=== PATIENT | female | born 1985 | race Caucasian/White ===

== ENCOUNTER → 2016-02-29 | Outpatient (CLI) | payer BC ==
[~2016-02-29] MED LIST: FRRS300 PO; MTR600X PO; PRENTAB26 PO
[2016-02-29 11:29] LABS: GTGD 50 Grams
[2016-02-29 12:13] LABS: URINE APPEARANCE CLEAR (CLEAR); URINE BILIRUBIN NEG (NEG); URINE COLOR YELLOW; URINE EPITHELIAL CELL AUTO >30 /lpf (0-5); URINE NITRITE NEG (NEG); URINE PH 7.5 (4.5-7.5); URINE SPECIFIC GRAVITY 1.003 (1.000-1.030); UROBILINOGEN NEG (NEG)
[2016-02-29 12:22] LABS: MANUAL MICROSCOPIC REQUIRED? NO; REVIEW REQ? NO
== END | disposition home or self-care (01) ==
LOC: C.LAB1850 09:27
PROVIDERS: ATTEND Obstetrics & Gynecology
DX: O09.292 Supervision of pregnancy with other poor reproductive or obstetric history, second trimester (principal)

== ENCOUNTER → 2016-04-25 | Outpatient (CLI) | payer BC | END | disposition home or self-care (01) | LOC: C.LABSPEC 16:33 | PROVIDERS: ATTEND Obstetrics & Gynecology | DX: O09.293 Supervision of pregnancy with other poor reproductive or obstetric history, third trimester (principal); Z3A.00 Weeks of gestation of pregnancy not specified ==

== ENCOUNTER 2016-05-20 03:09 | Inpatient (IN) | payer BC ==
[~2016-05-20] VITALS: Ht 172.7 cm; Wt 102.5 kg
[~2016-05-20 03:09] MED LIST changes: -FRRS300 PO; -MTR600X PO
[2016-05-25 07:53] VITALS: Ht 172.7 cm; Wt 102.5 kg
[2016-05-25] MEDS ORDERED: LACTATED RINGER'S 1000ML 1,000 ML IV SCH (08:00)
[2016-05-25] MEDS ORDERED: LACTATED RINGER'S 1000ML 500 ML IV PRN ×2 (08:01→17:30)
[2016-05-25] MEDS ORDERED: OXYTOCIN 30 UNITS/500ML NSS IV PRN (08:15)
[2016-05-25] MEDS ORDERED: PENICILLIN G POTASSIUM IV 6 MU in DEXTROSE 5% 250ML 250 ML IV ONE (08:15)
[2016-05-25 08:37] LABS: HEMATOCRIT 38.2 % (37-47); MEAN CELL VOLUME 92.7 fL (80-100); MEAN CORPUSCULAR HEMOGLOBIN 31.6 pg (25-34); MEAN PLATELET VOLUME 10.3 fL (7.4-10.4); PLATELET COUNT 187 K/uL (130-400); RED BLOOD COUNT 4.12 M/uL (4.2-5.4); WHITE BLOOD COUNT 10.55 K/uL (4.8-10.8)
[2016-05-25] MEDS: PENICILLIN G POTASSIUM IV 3 MU in DEXTROSE 5% 100ML 100 ML IV PRN ×3 (12:02→20:31)
[2016-05-25] MEDS ORDERED: EpHEDrine SULFATE INJ 50 MG/ML AMP ONE (16:52)
[2016-05-25] MEDS ORDERED: FENTANYL CITRATE INJ 50 MCG/1 ML 2 ML VIAL ONE (16:52)
[2016-05-25] MEDS ORDERED: BUPIVACAINE 0.25% 30 ML VIAL ONE (16:52)
[2016-05-25] MEDS ORDERED: FENTANYL 2MCG/ML ROPIV 1.25MG/ML 100ML BAG EPI ONE (16:53)
[2016-05-25] MEDS ORDERED: NALBUPHINE HCL INJ 10 MG/ML AMP IV PRN (17:30)
[2016-05-25] MEDS ORDERED: NALOXONE HCL INJ 0.4 MG/1 ML VIAL/CARP IV PRN (17:30)
[2016-05-25] MEDS ORDERED: DiphenhydrAMINE HCL 50 MG/ML VIAL IV PRN (17:30)
[2016-05-25] MEDS ORDERED: ONDANSETRON INJ 2 MG/ML 2 ML VIAL IV PRN (17:30)
[2016-05-25] MEDS ORDERED: NALOXONE HCL INJ 1 MG in SODIUM CHLORIDE 0.9% 1000ML 1,000 ML IV PRN (17:30)
[2016-05-25] MEDS ORDERED: FENTANYL 2MCG/ML ROPIV 1.25MG/ML 100ML BAG EPI PRN (17:30)
[2016-05-25] MEDS ORDERED: EpHEDrine SULFATE INJ 50 MG/ML AMP IV PRN (17:30)
[2016-05-25] MEDS: LACTATED RINGER'S 1000ML 1,000 ML IV SCH (19:30)
[2016-05-26] MEDS ORDERED: ACETAMINOPHEN 325 MG TAB PO PRN (01:00)
[2016-05-26] MEDS ORDERED: BENZOCAINE 20% AER SPR 82.5 GM CAN EXT PRN (01:00)
[2016-05-26] MEDS ORDERED: SUPERCREAM 0.870 % 15GM JAR EXT PRN (01:00)
[2016-05-26] MEDS ORDERED: DIPHTHERIA/TETANUS/PERTUSSIS 0.5 ML SYR/VIAL IM. ONE (01:00)
[2016-05-26] MEDS ORDERED: LANOLIN OINT EXT PRN ×2 (01:00)
[2016-05-26] MEDS ORDERED: MISOPROSTOL 200 MCG TAB PR SCH (01:00)
[2016-05-26] MEDS ORDERED: IBUPROFEN 600 MG TAB PO PRN (01:00)
[2016-05-26] MEDS ORDERED: HYDROCORTISONE ACETATE 25 MG SUPP PR PRN (01:00)
[2016-05-26] MEDS ORDERED: OXYTOCIN 30 UNITS/500ML NSS IV PRN (01:00)
[2016-05-26] MEDS: OXYTOCIN INJ 20 UNITS in LACTATED RINGER'S 1000ML 1,000 ML IV SCH ×2 (01:13→12:42)
[2016-05-26] MEDS ORDERED: METHYLERGONOVINE MALEATE 0.2 MG/ML AMP ONE ×2 (02:16→03:51)
[2016-05-26] MEDS ORDERED: CEFAZOLIN IV 2,000 MG in DEXTROSE 5% 50ML 50 ML IV ONE (02:36)
[2016-05-26 02:41] LABS: HEMATOCRIT 31.8 % (37-47)
--- NOTE | 2016-05-26 02:52 | DELIVERY SUMMARY ---
DATE OF OPERATION: 05/26/2016 The patient dilated to complete and pushed to deliver a viable male . Apgars 8 and 9 via over small second degree perineal laceration. Mouth and nose bulb suctioned at the perineum. Nuchal cord x1 noted and not easily reduced, so delivered through. Shoulders and body delivered with ease. Infant vigorous and crying at . Cord blood obtained. Placenta delivered spontaneously and intact a 3-vessel cord. Hemostasis inadequate with dilute Pitocin and uterine massage. Therefore, 800 mcg of per rectum Cytotec administered. The bladder was drained for clear yellow urine of approximately 250 mL. Cervix and sulci were intact. Hemostasis improved. Lacerations repaired in the usual fashion with 3-0 Vicryl. EBL 500 mL. Mother and baby stable in recovery. I attest to the content of the Intraoperative Record and any orders documented therein. Any exceptions are noted below. MTDD
[2016-05-26] MEDS ORDERED: BUTORPHANOL TARTRATE 1 MG/ML VIAL ONE (03:03)
--- NOTE | 2016-05-26 03:08 | HISTORY & PHYSICAL EXAMINATION ---
DATE OF ADMISSION: 05/26/2016 BEDSIDE PROCEDURE: Called to the patient's bedside due to heavy vaginal bleeding. The patient was having her routine fundal assessment after having eaten and having breastfed the baby and a large amount of blood and clot was visible on the under buttocks pads, which appeared to total at least 600 mL. The patient was repositioned on the bed for evaluation. Uterus completely uncontracted despite use of dilute Pitocin and 800 mcg of Cytotec previously given. The operators hand was placed into the uterus several times with clearance of clots, however no retained tissue noted. Bladder drained for approximately 300 mL of urine under sterile conditions. Blood pressure at that time 110s/60s with a pulse of 88 and therefore 0.2 mg of Methergine administered IM. The dilute Pitocin was increased to a rate of 999 mL per minute. A second IV site was obtained. A Bakri balloon was readied and placed within the uterine cavity. The balloon was inflated to approximately 385 mL. The patient was tolerating all this quite well. The bleeding seemed to be diminishing and there is no egress of blood from the Bakri balloon catheter. The uterine fundus was approximately 1 down from the umbilicus. A speculum was used previously to reinspect the vaginal tissues for any lacerations and no bleeding was noted from the cervix, sulci or laceration and therefore the hemorrhage was purely uterine tone related. The patient was counseled about all this. An H\H was being drawn as a baseline and the second one will be drawn later this morning. Will continue to use dilute Pitocin and watch for further bleeding. I suspect the additional bleeding after the 500 mL lost at the totals 800 mL with a total estimated blood loss of 1300 mL. History and Physical: cc: pph hpi: 31yo now with PPH about 2hrs from of LGA baby after induction for postdates and h/o prior LGA baby. Pt underwent induction with pitocin early am on 05/25/16 and delivery of was about 1am on 05/26/16. At the time of , borderline excess bleeding was managed as noted above. I was called to see patient as noted above and now on my reevaluation I continue to see a trickle of blood vaginally and balloon potentially is not situated correctly. I do feel fundus is now 1 above the umbilicus and given these findings and fact that patient epidural anesthesia is wearing off and I want to do a more thorough EUA, I recommend evaluation under anesthesia and patient agrees. She was given hemabate as well IM in attempt to see if bleeding was better controlled. pnc c/b 1. GBS pos, postdates, and prior LGA fetus pnl: rh pos, ri, gbs pos obh: 2013, , lga fetus, op note on that delivery shows pph then controlled with dilute pit and cytotec per rectum 2016 9wk D&E, missed gynh: nl paps, no stds pmh: anxiety psh: D&E, wisdom teeth allg: nkda meds: PNV sh: no tob/etoh/drugs fh: no rosangela anom or mr pe: bp 110/60s, p 88, abd with firm fundus but 1 above umbilicus and to the right. perineal exam with on and off bright red trickle and balloon palpably more in vagina than in cervix a/ acute pph p/ discussed with couple need to examine more thoroughly in OR. I feel balloon may need to be re-situated, need to redo inspections of tissues, reexplore the uterus and possible curettage. Also reviewed more drastic measures like exploratory laparotomy, stiches in her uterus or vessels and possible hysterectomy. consent reviewed and signed. T&C x 2 initiated. Coags drawn. Hgb was recently 11 and plts 177. Pt readied for OR and anesthesia and OR team notified. JENNIFER
[2016-05-26] MEDS ORDERED: CARBOPROST TROMETHAMINE 250 MCG/ML AMP ONE ×2 (03:11→03:51)
[2016-05-26 03:20] LABS: MEAN CORPUSCULAR HEMOGLOBIN 31.7 pg (25-34); MEAN CORPUSCULAR HGB CONC 34.9 g/dl (32-36); MEAN PLATELET VOLUME 9.8 fL (7.4-10.4); PLATELET COUNT 177 K/uL (130-400); WHITE BLOOD COUNT 19.35 K/uL (4.8-10.8)
[2016-05-26] MEDS ORDERED: FENTANYL CITRATE INJ 50 MCG/1 ML 2 ML VIAL ONE ×2 (03:23)
[2016-05-26] MEDS ORDERED: MIDAZOLAM HCL 1 MG/ML 2ML VIAL ONE (03:23)
[2016-05-26] MEDS ORDERED: ALBUMIN HUMAN 5% 12.5 GM/250 ML VIAL IV ONE (03:28)
[2016-05-26 03:38] LABS: MEAN CELL VOLUME 90.9 fL (80-100)
[2016-05-26 03:39] LABS: INR 0.9 (0.9-1.1); PARTIAL THROMBOPLASTIN RATIO 1.1
[2016-05-26] MEDS ORDERED: MISOPROSTOL 200 MCG TAB ONE (03:50)
[2016-05-26] MEDS ORDERED: PROPOFOL IV EMULSION 10 MG/ML 20 ML VIAL IV ONE (04:34)
[2016-05-26] MEDS ORDERED: SUCCINYLCHOLINE CHLORIDE 20 MG/ML 10 ML VIAL IV ONE (04:34)
[2016-05-26] MEDS ORDERED: ROCURONIUM BROMIDE 10 MG/ML 5 ML VIAL ONE (04:34)
[2016-05-26] MEDS ORDERED: ONDANSETRON INJ 2 MG/ML 2 ML VIAL ONE (04:34)
[2016-05-26] MEDS ORDERED: GLYCOPYRROLATE INJ 0.2 MG/ML VIAL ONE (04:35)
[2016-05-26] MEDS ORDERED: DEXAMETHASONE SOD INJ 4 MG/ML VIAL ONE (04:35)
[2016-05-26] MEDS ORDERED: OXYTOCIN INJ 10 UNITS/ML VIAL ONE (04:39)
[2016-05-26] MEDS ORDERED: ATROPINE SULFATE 0.1 MG/ML 5ML SYR IV PRN (05:15)
[2016-05-26] MEDS ORDERED: ONDANSETRON INJ 2 MG/ML 2 ML VIAL IV PRN (05:15)
[2016-05-26] MEDS ORDERED: FENTANYL CITRATE INJ 50 MCG/1 ML 2 ML VIAL IV PRN (05:15)
[2016-05-26] MEDS ORDERED: EpHEDrine SULFATE INJ 50 MG/ML AMP IV PRN (05:15)
[2016-05-26] MEDS ORDERED: HYDROmorphone INJ 1 MG/ML SYR IV PRN (05:15)
--- NOTE | 2016-05-26 05:28 | Anesthesia Procedure Note ---
Anesthesia Epidural Removal Nt Date & Time May 26, 2016 at 05:27 Vital Signs Pain Intensity: 9.0 Vital Signs Past 12 Hours Date Time Temp Pulse Resp B/P Pulse Ox O2 Delivery O2 Flow Rate FiO2 05/26/16 05:20 83 16 129/83 97 Room Air 05/26/16 05:10 84 16 124/74 97 Nasal Cannula 2 05/26/16 05:00 87 16 125/81 97 Nasal Cannula 2 05/26/16 04:59 36.6 88 16 117/75 96 Mask 10 Notes Mental Status: alert / awake / arousable, participated in evaluation Nausea / Vomiting: adequately controlled Pain: improving with treatment Airway Patency, RR, SpO2: stable & adequate BP & HR: stable & adequate Hydration State: stable & adequate Neuraxial Anesthesia: was administered Anesthetic Complications: no major complications apparent, pt satisfied with anesthetic care Epidural: removed without complications, with tip intact
[2016-05-26 05:31] VITALS: O2SAT 94
[2016-05-26] MEDS ORDERED: MISOPROSTOL 200 MCG TAB PR STA (05:32)
--- NOTE | 2016-05-26 05:32 | Anesthesiology Progress Note ---
Anesthesia Post Op Note Date & Time May 26, 2016 at 05:27 Vital Signs Pain Intensity: 4 Vital Signs Past 12 Hours Date Time Temp Pulse Resp B/P Pulse Ox O2 Delivery O2 Flow Rate FiO2 05/26/16 05:20 83 16 129/83 97 Room Air 05/26/16 05:10 84 16 124/74 97 Nasal Cannula 2 05/26/16 05:00 87 16 125/81 97 Nasal Cannula 2 05/26/16 04:59 36.6 88 16 117/75 96 Mask 10 Notes Mental Status: alert / awake / arousable, participated in evaluation Pt Amnestic to Procedure: Yes Nausea / Vomiting: adequately controlled Pain: adequately controlled Airway Patency, RR, SpO2: stable & adequate BP & HR: stable & adequate Hydration State: stable & adequate Anesthetic Complications: no major complications apparent Patient c/o sore throat in recovery room. Apart from being intubated (done via glidescope in atraumatic fashion on first attempt), she had an OG tube placed post-induction and was removed prior to her being extubated. I suspect this is causing her sore throat and it was explained to her that this would likely subside in a day or two. When patient is awake enough small amounts of ice chips will help make her throat feel better. OG tube was placed as patient was a full stomach and required an emergent procedure when a rapid sequence induction was performed for GETA. I did suction a significant volume of stomach contents from the OG after placement so felt it was necessary for this to be inserted in the first place. Otherwise, patient is resting comfortably with stable vital signs. Per the request from her attending SERVICE AND REPAIR SUPERVISOR Dr. Reid, I ordered STAT PT/INR, PTT and fibrinogen given that patient had hemorrhage. She did not require any blood replacement in the operating room and her vital signs were very stable (normotensive, HR in 80's). Patient should be able to be transferred back to labor and delivery once criteria for PACU discharge is met.
[2016-05-26 05:38] LABS: HEMATOCRIT 29.8 % (37-47); MEAN CELL VOLUME 90.3 fL (80-100); MEAN CORPUSCULAR HEMOGLOBIN 31.5 pg (25-34); MEAN PLATELET VOLUME 9.7 fL (7.4-10.4); PLATELET COUNT 169 K/uL (130-400); WHITE BLOOD COUNT 19.92 K/uL (4.8-10.8)
[2016-05-26 05:45] LABS: MEAN CORPUSCULAR HGB CONC 34.9 g/dl (32-36)
[2016-05-26] MEDS ORDERED: CARBOPROST TROMETHAMINE 250 MCG/ML AMP IM STA (05:52)
[2016-05-26 05:57] LABS: BASO % 0.1 %; BASO ABS # 0.02 K/uL (0-0.2); COMPLETE YES; EOS % 0.1 %; IG% 0.4 %; LYMPH % 4.7 %; LYMPH ABS # 0.93 K/uL (1.2-3.4); MONO % 3.5 %; NEUT % 91.2 %
[2016-05-26] MEDS ORDERED: METHYLERGONOVINE MALEATE 0.2 MG/ML AMP IM STA (06:02)
[2016-05-26 06:10] LABS: INR 0.9 (0.9-1.1); PARTIAL THROMBOPLASTIN RATIO 1.2; PROTHROMBIN TIME (PATIENT) 10.1 SECONDS (9.0-12.0)
--- NOTE | 2016-05-26 07:02 | OPERATIVE REPORT ---
DATE OF OPERATION: 05/26/2016 PREOPERATIVE DIAGNOSES: 1. Acute hemorrhage. 2. Status post normal spontaneous vaginal delivery. POSTOPERATIVE DIAGNOSES: Same. PROCEDURE: 1. Exam under anesthesia. 2. Exploration of the uterus. 3. Placement of the Bakri balloon. 4. Re-repair of second-degree perineal laceration. 5. Administration of uterotonic agents. SURGEON: Dr. Pam Reid. GAS STATION MANAGER: Dr. Citlalli Orellana. IV FLUIDS: One liter. ESTIMATED BLOOD LOSS: 300 mL. URINE OUTPUT: 250 mL. ANESTHESIA: General. INDICATIONS: A 31-year-old 3, para 1-0-2-1, approximately 3 hours , with continued acute hemorrhage. Despite bedside placement of a Bakri balloon and multiple uterotonic agents, concern raised for possible continued bleeding and it was recommended the patient come to the operating room for exam under anesthesia and possible further procedures. She agreed and a consent form was signed. At the point of her coming to labor and delivery, at least 1300 mL of blood loss was estimated since the . FINDINGS: Balloon mostly within the vagina. Deflated and removed. Uterus explored and fundus fairly well contracted down. Minimal clot removed. Mckinney catheter had already been placed. PROCEDURE: The patient was taken to the operating room, identified. She was placed in a dorsal lithotomy position and prepped and draped in the usual sterile fashion. A Mckinney catheter had already been placed. She had SCDs on. The exam under anesthesia took place with the findings as noted above. The balloon was deflated and removed. Again, the uterus was explored, as noted above and the fundus felt quite contracted down. The lower uterine segment and cervix area was quite boggy and floppy. Small amounts of clots were extruded. The cervix, sulci and laceration sites were inspected extensively and no bleeding sites noted. The cervix was visibly quite floppy and dilated. As preparations were made to replace a Bakri balloon, given that it appeared that it had been working, the uterus began to become more boggy and more of the examiner's hand was able to reach into the fundus. A dose of 0.2mg IM methergine within the lower uterine segment tissue was injected. The Bakri balloon was slid over the examiner's hand and while stabilizing the uterus, the balloon was inflated. 500 mL of saline was inflated into the balloon. The Bakri balloon tubing was attached to a catheter bag. She continued to make clear yellow urine. The laceration that was previously repaired, , needed to be re-repaired with 3-0 Vicryl in the usual fashion. The bleeding was observed for some time. It was thought to be stabilizing and the uterine fundus remained one below the umbilicus and firm. The balloon clearly was, when inspected vaginally, way up in the uterine cavity. Additional 800mcg cytotec placed rectally to try to achieve further uterine tone. At this point, the procedure was terminated. The patient was returned to supine position, awoken from her anesthesia and transferred to the recovery room in stable condition. All sponge, lap and needle counts were correct x2. I attest to the content of the Intraoperative Record and any orders documented therein. Any exceptions are noted below. MTDD
--- NOTE | 2016-05-26 07:22 | History & Physical Bridge Note ---
H&P Re-Evaluation Bridge Note: I have examined the patient, reviewed the History & Physical and in the interval since the performance of the History & Physical I have noted the following changes of clinical significance: No changes noted
[2016-05-26] MEDS: DOCUSATE SODIUM 100 MG CAP PO SCH ×2 (08:00→20:00)
[2016-05-26] MEDS: ACETAMINOPHEN/CODEINE 300/30MG TAB PO PRN ×4 (09:26→23:31)
[2016-05-26] MEDS: CEFAZOLIN IV 2,000 MG in DEXTROSE 5% 50ML 50 ML IV SCH ×2 (11:14→19:02)
[2016-05-26 18:20] LABS: HEMATOCRIT 24.9 % (37-47); MEAN CELL VOLUME 91.2 fL (80-100); MEAN CORPUSCULAR HEMOGLOBIN 32.2 pg (25-34); MEAN CORPUSCULAR HGB CONC 35.3 g/dl (32-36); MEAN PLATELET VOLUME 9.8 fL (7.4-10.4); PLATELET COUNT 164 K/uL (130-400); RED BLOOD COUNT 2.73 M/uL (4.2-5.4); WHITE BLOOD COUNT 16.37 K/uL (4.8-10.8)
[2016-05-26] MEDS ORDERED: NURSING VERBAL MED ORDER ONE (19:30)
[2016-05-26] MEDS ORDERED: COUGH DROP (SUGAR FREE) LOZ 24 LOZ/1 BOX ONE (23:33)
[2016-05-26] MEDS ORDERED: NURSING DECISION MEDICATION ORDER SCH (23:45)
[2016-05-26] MEDS ORDERED: COUGH DROP (SUGAR FREE) LOZ 24 LOZ/1 BOX PO PRN (23:45)
[2016-05-27] MEDS: CEFAZOLIN IV 2,000 MG in DEXTROSE 5% 50ML 50 ML IV SCH (02:35)
[2016-05-27 06:45] LABS: HEMATOCRIT 26.1 % (37-47)
--- NOTE | 2016-05-27 07:28 | Progress Note ---
Subjective May 27, 2016. Subjective conversation w/ patient, physical exam Ambulation: limited ambulation Voiding: madden catheter in place Passing Gas: Yes Diet Tolerance: Regular Diet Lochia: Small Feeding Type: Breast Feeding Review of Systems Constitutional: No chills, No fever, No sweats Respiratory: No cough, No shortness of breath Cardiac: No chest pain, No claudication Abdomen: + pain (pain over uterus when moving), No nausea, No vomiting Objective Physical Exam General Appearance: WELL-APPEARING, NO APPARENT DISTRESS, other (bakri balloon in place) Respiratory/Chest: lungs clear, no accessory muscle use Cardiovascular: regular rate, rhythm, no murmur Fundus: Firm, Non-Tender, Relation to Umbilicus (1 cm below) Extremities: non-tender, no calf tenderness Laboratory Results Last 24 Hours Test 05/26/16 18:00 05/27/16 06:26 White Blood Count 16.37 K/uL Red Blood Count 2.73 M/uL Hemoglobin 8.8 g/dL 8.9 g/dL Hematocrit 24.9 % 26.1 % Mean Corpuscular Volume 91.2 fL Mean Corpuscular Hemoglobin 32.2 pg Mean Corpuscular Hemoglobin Concent 35.3 g/dl RDW Standard Deviation 43.3 fL RDW Coefficient of Variation 13.0 % Platelet Count 164 K/uL Mean Platelet Volume 9.8 fL Assessment and Plan Post- Day#: 1 Continue Routine Care: s/p Day 1 - PPH 1 hr yesterday after delivery. Had a bakri balloon placed and went to the OR to investigate cause of bleeding. Methergen injection into cervix and reinsertion of bakri balloon after procedure. Patient having minimal blood drainage from bakri. 100cc removed from bakri balloon. Will continue to monitor for further bleeding this AM and will slowly remove fluid from bakri balloon as long as there is not continued bleeding. - vitals reviewed and wnl - Hgb 8.9 this morning - blood: O+, Rubella immune, GBS+ - patient doing well clinically - encourage breast feeding and monitor lochia - CONTINUE POST CARE Resident Physician Supervision Note: I was present with Dr. Varela during the history and exam. I discussed the case with the resident and agree with the findings and plan as documented in the note. Any exceptions or clarifications are listed here: PPD#2. hemorrhage: approx 1500cc total, bakri balloon in place after exploration under anesthesia in OR. During PPH, rec'd methergine, hemabate, and cytotec. Rec'd 24h ancef due to bakri balloon in place. Scant blood from bakri balloon overnight, scant blood from vagina. Deflated bakri by 100cc at 0720 today. H/H stable. Patient asymptomatic and vitals stable. Will continue to deflate bakri balloon today as long as bleeding is stable. Documented By: Citlalli Orellana
[2016-05-27] MEDS: LACTATED RINGER'S 1000ML 1,000 ML IV SCH (07:45)
[2016-05-27] MEDS: DOCUSATE SODIUM 100 MG CAP PO SCH (08:00)
--- NOTE | 2016-05-27 08:46 | Discharge Instructions ---
Discharge Instructions Date of Service May 27, 2016. Admission Reason for Admission: Induction Discharge Discharge Diagnosis / Problem: s/p Discharge Goals Goal(s): Routine recovery after delivery Activity Recommendations Activity Limitations: per Instructions/Follow-up section . Instructions / Follow-Up Instructions / Follow-Up ACTIVITY RECOMMENDATIONS: * Gradual return to full activity over the next 2-3 weeks. * No lifting - nothing heavier than baby over the next 2-3 weeks. * Do not engage in vigorous exercise, sexual activity or sports until cleared by your physician. * Do not drive or operate any motorized equipment until cleared by your physician. * You may shower/bathe daily. MEDICATIONS: For discomfort or pain, you may use Acetaminophen (Tylenol), Ibuprofen (Advil), or Naproxen (Aleve) following the package directions. For constipation you may use Colace following the package directions. BREAST CARE: If you are not breast feeding: * Wear a supportive bra 24 hours a day for one to two weeks. * Avoid stimulating your breasts and nipples as much as possible during the first few weeks after delivery. * When taking a shower, have the warm water hit your back, not breasts. * When your breasts feel full, apply ice packs. Usually three to four times a day helps ease the discomfort. * Take a mild pain medication (Tylenol / Motrin) when you are uncomfortable. If breast feeding: * Use breast milk to lubricate nipples. Lansinoh cream may be used for sore nipples. You do not need to remove cream prior to breast feeding. If using a different brand of cream, check the label for directions regarding removal of cream prior to nursing. * Wear a supportive bra. * If having problems with breasts or breast feeding, call a transportation sales consultant or your health care provider. EPISIOTOMY CARE: After delivery, if you have an episiotomy (stitches), the following steps will ease discomfort and aid healing. * For the first 24 hours after delivery, place ice packs next to your episiotomy to help reduce swelling. * After the first 24 hour-period, sitz baths, either portable or in the tub, are suggested. A shower with a shower arm sprayed over the episiotomy may be comforting. * Bere care should be done after each voiding and bowel movement. Squirt warm water from a plastic bottle over the perineum (region of the body between the anus and urinary opening) and pat dry. * Use Dermoplast to ease discomfort. Shake container. [place] directly over the episiotomy. Place a Tucks on a clean sanitary pad next to your episiotomy. SPECIAL CARE INSTRUCTIONS: When you are discharged from the hospital, it is important for you to follow the instructions listed below: * During the first week at home, you should be able to care for yourself and your baby. In addition, the usual light household activities are encouraged. * Limit your activities to the way you feel. Do not try to clean the house or move furniture. Be sensible. * If you actively engage in sports and have done so up until the time of your delivery, you may resume these activities as soon as you feel able. This may take up to one month or even longer. Use good judgment. * Continue to take your vitamins for at least six weeks after the of your baby. * Your diet need not be limited unless you were on a special diet before your delivery. Breast-feeding mothers need around 2500 calories per day and at least 64-80 ounces of fluid per day (8 to 10 glasses). * You should eat foods from the four major food groups. Crash diets or fad diets are to be avoided. Eating lean meats, fresh fruits and vegetables, low-fat dairy products, high fiber foods and a regular exercise program, will help you get back to your pre- weight without putting your health at risk. * Constipation is sometimes a problem after delivery. Take a mild laxative as needed. If breast feeding, Milk of Magnesia is acceptable to use. You may use a suppository or Fleets enema if no episiotomy. * A daily shower or tub bath is suggested. Be sure to thoroughly and gently dry the perineum. * A bloody vaginal discharge will usually continue until around four weeks post . A small amount of bleeding may continue for as long as six weeks. Vaginal discharge changes from the bright red bleeding after delivery to pink then brownish and finally yellowish-pink before becoming white and disappearing. * Bleeding may increase with activity. Your first period may come in 4-8 weeks. If you are breast feeding, your period may be delayed even longer. * [place] (sex) can begin whenever both you and your partner feel comfortable and do not have any form of genital infection. It is recommended that you wait at least six weeks for internal and external healing to occur. If you have questions, please talk to your health care practitioner. A condom should be used to prevent infection and . * Foreplay, gentle intercourse and lubrication is very important the first several times to prevent pain. A water-based lubricant such as K-Y jelly or Astroglide may be used. * If you have RH negative blood and your baby is RH positive, you will receive RHOGAM by injection prior to discharge. The nurse will give you a card to keep with you that has the date and place that you received RHOGAM after delivery. * During your care, you had a Rubella screen done to check for the presence of rubella antibodies in your blood. If your test was negative, you will receive a Rubella vaccine prior to discharge. This vaccine may cause a fever, soreness at the injection site and flu-like symptoms. If these symptoms persist, notify your health care practitioner. is not advised for one month after a Rubella vaccine. * Verbalizes understanding of car seat law as reviewed with patient nursing. * Car Seat hand-out given and reviewed with patient by nursing. * Shaken baby information reviewed with patient by nursing. Call you doctor if: * Heavy bleeding (saturating several pads an hour) or passing clots the size of your fist. * A fever >101 degrees F (38.3 degrees C) on two occasions four hours apart and /or chills. * Unusual pain in the pelvic or vaginal areas. * "Baby Blues" lasting longer than two weeks. If you have any questions or concerns, call your health care practitioner at . FOLLOW UP VISIT: * Please call the office at to schedule a 6 week examination. It is important you keep this appointment. It is important for you to make arrangements for either yearly or twice yearly check-ups thereafter. Current Hospital Diet Patient's current hospital diet: Regular OB Diet Discharge Diet Recommended Diet: Regular OB Diet Procedures Procedures Performed: Uterine exploration; insertion of balloon; repair of second degree laceration Pending Studies Studies pending at discharge: no Medical Emergencies . Who to Call and When: Medical Emergencies: If at any time you feel your situation is an emergency, please call 911 immediately. . Non-Emergent Contact Non-Emergency issues call your: Primary Care Provider, Child Custody Evaluator . . "Provider Documentation" section prepared by Citlalli Orellana. VTE Core Measure Inpt VTE Proph given/why not?: Treatment not indicated
--- NOTE | 2016-05-27 12:10 | Progress Note ---
Subjective May 27, 2016. Subjective conversation w/ patient Voiding: madden catheter in place Objective Physical Exam Fundus: Firm (minimal bleeding) Laboratory Results Last 24 Hours Test 05/26/16 18:00 05/27/16 06:26 White Blood Count 16.37 K/uL Red Blood Count 2.73 M/uL Hemoglobin 8.8 g/dL 8.9 g/dL Hematocrit 24.9 % 26.1 % Mean Corpuscular Volume 91.2 fL Mean Corpuscular Hemoglobin 32.2 pg Mean Corpuscular Hemoglobin Concent 35.3 g/dl RDW Standard Deviation 43.3 fL RDW Coefficient of Variation 13.0 % Platelet Count 164 K/uL Mean Platelet Volume 9.8 fL Assessment and Plan Post- Day#: 1 Continue Routine Care: - Bakri balloon deflated over 4 hours - no active bleeding - d/c Madden and pressure stockings - will allow patient to ambulate and access for tolerance of anemia
--- NOTE | 2016-05-27 14:39 | Progress Note ---
Subjective May 27, 2016. Subjective conversation w/ patient, physical exam Voiding: no voiding problems Objective Laboratory Results Last 24 Hours Test 05/26/16 18:00 05/27/16 06:26 White Blood Count 16.37 K/uL Red Blood Count 2.73 M/uL Hemoglobin 8.8 g/dL 8.9 g/dL Hematocrit 24.9 % 26.1 % Mean Corpuscular Volume 91.2 fL Mean Corpuscular Hemoglobin 32.2 pg Mean Corpuscular Hemoglobin Concent 35.3 g/dl RDW Standard Deviation 43.3 fL RDW Coefficient of Variation 13.0 % Platelet Count 164 K/uL Mean Platelet Volume 9.8 fL Assessment and Plan Post- Day#: 2 Continue Routine Care: - pt doing well - desires d/c - instructions given - start Fe - f/u in 6 weeks
[2016-05-27] MEDS ORDERED: FRRS300 PO (14:40)
[2016-05-27 15:07] VITALS: BP 109/62; PULSE 72; TEMP 36.7
[2016-05-27] MEDS: ACETAMINOPHEN/CODEINE 300/30MG TAB PO PRN (15:12)
[2016-05-27 16:16] VITALS: BP_DIAS 62; PULSE 72; TEMP 36.7
--- NOTE | 2016-05-30 10:05 | DISCHARGE SUMMARY ---
ADMISSION DIAGNOSES: 1. Post-dates intrauterine . 2. History of prior macrosomic baby. 3. Group beta strep positive. 4. Induction of labor. DISCHARGE DIAGNOSES: 1. Same. 2. Acute hemorrhage. PROCEDURES: 1. Normal spontaneous vaginal delivery. 2. Repair of second degree perineal laceration. 3. Exam under anesthesia. 4. Placement of Bakri balloon x2, use of uterotonic agents. BRIEF HISTORY AND HOSPITAL COURSE: A 31-year-old 3, para 1-0-1-1, who presented postdates for induction of labor for history of prior macrosomic baby. Her induction began on the veneer stapler of 05/25/2016 and Pitocin was used. It ultimately resulted in a normal vaginal delivery that was complicated by more immediate excess bleeding thought to be related to poor uterine tone and managed with dilute IV Pitocin, bimanual massage, 800 mcg of rectal Cytotec. The total blood loss was considered to be 500 mL. Unfortunately, approximately 2 hours the patient had a large loss of additional blood with poor uterine tone and underwent placement of a Bakri balloon by the bedside after inspection within the vagina. She received additional uterotonic agents and despite these measures, was considered to have a continuous trickle with concern that the Bakri balloon was not situated correctly. Her epidural anesthesia was already wearing off and she required some IV Stadol for pain control. In light of these findings and a continuous trickle of blood, it was recommended that she undergo general anesthesia for more thorough exam under anesthesia for sources of bleeding as well as potential repositioning of the Bakri balloon. It is significant to mention at the bedside an additional 800 mL of blood was estimated to be lost totaling approximately 1300 mL of blood loss prior to her evaluation under anesthesia. She went to the operating room as mentioned and the uterus was explored. There were no additional findings or lacerations or retained products to explain the bleeding other than poor uterine tone particularly of lower uterine segment. The Bakri balloon that had been placed was removed as the majority of balloon was in vagina and it was significant to note that the only small blood clots were noted after the removal. With more time however the uterus did seem to become more boggy, particular at lower uterine segment. At that time a new Bakri balloon was placed and stabilized in the fundus and inflated. Her additional estimated blood loss was estimated to be 300cc totaling approximately 1600 mL. The second degree perineal laceration had to be restitched due to breaking of the stitches with examination. The patient did also receive direct injection in the lower uterine segment of Methergine and additional 800 mcg of Cytotec rectally. Her postop course included a series of coagulation studies that always remained normal as well as blood counts that did drop to a hemoglobin of 8.9. It is significant to mention that her hemoglobin began at 13. The Bakri balloon was left in place and the patient was given IV antibiotics. After approximately 24 hours, the Bakri balloon was begun to be deflated and on her day #2 was completely deflated and she had no significant bleeding. Her vital signs were stable and she was tolerating a regular diet. Mckinney catheter that had been in placed was removed and she was voiding well without problems and was stable for her discharge to home which she desired. She was given appropriate discharge instructions and instructed to take iron supplements. She was to follow up in 6 weeks for checkup. She remained afebrile during her course. JENNIFER
== END 2016-05-27 16:19 | disposition home or self-care (01) | DRG 768 ==
LOC: C.LD 05-25 07:39
PROVIDERS: ADMIT Obstetrics & Gynecology; ATTEND Obstetrics & Gynecology
PROC: 0UJH7ZZ Inspection of Vagina and Cul-de-sac, Via Natural or Artificial Opening (ICD-10-PCS; 2016-05-26)
PROC: 0W3R7ZZ Control Bleeding in Genitourinary Tract, Via Natural or Artificial Opening (ICD-10-PCS; 2016-05-26)
PROC: 0KQM3ZZ Repair Perineum Muscle, Percutaneous Approach (ICD-10-PCS; 2016-05-26)
PROC: 0UJD7ZZ Inspection of Uterus and Cervix, Via Natural or Artificial Opening (ICD-10-PCS; 2016-05-26)
PROC: 10E0XZZ Delivery of Products of Conception, External Approach (ICD-10-PCS; principal; 2016-05-26 03:49)
PROC: 0KQM0ZZ Repair Perineum Muscle, Open Approach (ICD-10-PCS; principal; 2016-05-26 03:49)
PROC: 3E033VJ Introduction of Other Hormone into Peripheral Vein, Percutaneous Approach (ICD-10-PCS; principal; 2016-05-26 03:49)
DX: O48.0 Post-term pregnancy (principal); O72.1 Other immediate postpartum hemorrhage; O70.1 Second degree perineal laceration during delivery; Z37.0 Single live birth; O99.824 Streptococcus B carrier state complicating childbirth; O69.1XX0 Labor and delivery complicated by cord around neck, with compression, not applicable or unspecified; Z3A.40 40 weeks gestation of pregnancy

== ENCOUNTER 2016-05-24 19:05 | Outpatient (CLI) | payer BC ==
[~2016-05-24] VITALS: Ht 172.7 cm; Wt 102.0 kg
[~2016-05-24 19:05] MED LIST changes: +MTR600X PO
[2016-05-24 19:47] VITALS: Ht 172.7 cm; Wt 102.0 kg
--- NOTE | 2016-06-01 12:44 | EDITING REQUIRED CODING QUERY ---
DIAGNOSIS NEEDED To promote full compliance with coding requirements relating to patient care, physician participation is requested in all cases of alarm security or surveillance monitor uncertainty. Please assist us with the question(s) below: Coding Question: The patient received care in labor and delivery on 05/24/16 as noted within the record. Please document the diagnosis that is being addressed by the medication/treatment. Provider Response: DIAGNOSIS: Induction of labor WEEKS OF GESTATION: 40 Thank you for your assistance, Alla Fatima - Aeronautical Test Engineer
== END 2016-05-24 19:46 | disposition home or self-care (01) ==
LOC: C.OPB 19:05 → C.LD 19:05 → C.OPB 19:46
PROVIDERS: ATTEND Obstetrics & Gynecology
DX: Z34.83 Encounter for supervision of other normal pregnancy, third trimester (principal)